=== PATIENT | male | born 1980 | race Two or more races ===

== ENCOUNTER 2016-12-28 21:16 | Emergency (ER) | payer MEDICAID ==
[~2016-12-28] VITALS: Ht 180.3 cm; Wt 172.4 kg
[2016-12-29 02:42] VITALS: BP 128/95
== END 2016-12-29 02:43 | disposition home or self-care (01) ==
LOC: ER 21:17
DX: K43.9 Ventral hernia without obstruction or gangrene (principal); Z88.1 Allergy status to other antibiotic agents; Z88.2 Allergy status to sulfonamides; Z88.8 Allergy status to other drugs, medicaments and biological substances; V43.52XA Car driver injured in collision with other type car in traffic accident, initial encounter; Y93.89 Activity, other specified; Y92.89 Other specified places as the place of occurrence of the external cause; Y99.9 Unspecified external cause status
CPT/HCPCS: 76870; 99284; A4606; Z7610

== ENCOUNTER 2018-12-10 13:31 | Emergency (ER) | payer MEDICAID ==
[~2018-12-10] VITALS: Ht 177.8 cm; Wt 204.6 kg
--- NOTE | 2018-12-10 13:50 | NUR ---
PT BIB SELF C/O OF DIZZINESS SINCE YESTERDAY, PT IS AAOX4, NOT IN RESPIRATORY DISTRESS, BP IS ELEVATED 174/103, KEPT RESTED AND COMFORTABLE.
--- NOTE | 2018-12-10 14:10 | NUR ---
SEEN AND EXAMINED BY JANE ODONNELL.
[2018-12-10] MEDS ORDERED: ALBUTEROL FS 2.5 MG/3 ML VIAL.NEB ONE ×2 (14:13→14:14)
--- NOTE | 2018-12-10 14:22 | NUR ---
RT AT BEDSIDE FOR BREATHING TREATMENT.
[2018-12-10] MEDS ORDERED: ALBUTEROL FS 2.5 MG/3 ML VIAL.NEB CONTNEB ONE (14:30)
[2018-12-10] MEDS ORDERED: ALBUTEROL FS 2.5 MG/3 ML VIAL.NEB NEB ONE (14:30)
[2018-12-10] MEDS ORDERED: CLONIDINE HCL 0.1 MG TABLET ONE (15:14)
--- NOTE | 2018-12-10 15:17 | NUR ---
NOTED HIGH BP 172/85 JANE ODONNELL NOFTIFIED.
--- NOTE | 2018-12-10 15:17 | NUR ---
IV removed. Catheter intact and site benign. Pressure and 4x4 applied to site. No bleeding noted. Patient discharged to home in stable condition. Written and verbal after care instructions given. Patient verbalizes understanding of instruction.
[2018-12-10] MEDS ORDERED: CLONIDINE HCL 0.1 MG TABLET PO ONE (15:30)
[2018-12-10 15:51] VITALS: BP 136/69
== END 2018-12-10 16:48 | disposition home or self-care (01) ==
LOC: ER 13:33
DX: R42 Dizziness and giddiness (principal); R03.0 Elevated blood-pressure reading, without diagnosis of hypertension; E66.01 Morbid (severe) obesity due to excess calories; R06.2 Wheezing; F17.210 Nicotine dependence, cigarettes, uncomplicated; Z86.79 Personal history of other diseases of the circulatory system; Z88.1 Allergy status to other antibiotic agents; Z88.2 Allergy status to sulfonamides
CPT/HCPCS: 94644; 99285; 99406; A4606

== ENCOUNTER 2019-06-18 23:07 | Inpatient (IN) | payer MEDICAID ==
[~2019-06-18] VITALS: Ht 177.8 cm; Wt 205.0 kg
[2019-06-18] MEDS ORDERED: LIDOCAINE 1%-EPI 1:100,000 20 ML VIAL TP ONE (23:30)
[2019-06-18] MEDS ORDERED: IV NS 0.9% 1,000 ML BAG IV ONE (23:30)
[2019-06-18] MEDS ORDERED: VANCOMYCIN 1 GM in IV D5W 250 ML IV ONE (23:30)
[2019-06-18] MEDS ORDERED: PIPERACILLIN /TAZOBACTAM 3.375 G in IV D5W 50 ML IV ONE (23:30)
[2019-06-18] MEDS ORDERED: LIDOCAINE 1%-EPI 1:100,000 20 ML VIAL ONE (23:31)
--- NOTE | 2019-06-18 23:45 | NUR ---
Thuan ODONNELL AT BEDSIDE FOR I&D.
[2019-06-18] MEDS ORDERED: VANCOMYCIN 1 GM VIAL ONE (23:47)
[2019-06-18] MEDS ORDERED: PIPERACILLIN /TAZOBACTAM 3.375 G VIAL IV ONE (23:48)
[2019-06-18 23:51] LABS: BASOPHILS % (AUTO) 0.6 % (0.0-2.0); EOSINOPHILS % (AUTO) 1.2 % (0.0-6.0); HEMATOCRIT 50 % (39-51); HEMOGLOBIN 16.9 g/dL (13.5-17.5); LYMPHOCYTES % (AUTO) 24.8 % (20.0-44.0); MEAN CORPUSCULAR HGB CONC 34 g/dl (31.0-36.0); MEAN CORPUSCULAR VOLUME 99 fL (80-96); MONOCYTES # (AUTO) 1.1 /CMM (0.1-1.30); NEUTROPHILS % (AUTO) 60.4 % (43.0-81.0); PLATELET COUNT (AUTO) 209 /CMM (150-450); RED BLOOD CELL COUNT(AUTO) 5.01 MIL/uL (4.5-6.0); WHITE BLOOD COUNT (AUTO) 8.3 K/uL (4.3-11.0)
[2019-06-19] LABS: CALCIUM, SERUM 8.6 mg/dL (8.5-10.1); POTASSIUM 3.9 mmol/L (3.5-5.1)
[2019-06-19] MEDS ORDERED: HYDROCODONE/APAP 5/325MG 1 EACH TABLET PO PRN
[2019-06-19] MEDS ORDERED: Z GUARD REMEDY 2 OZ OINT TP PRN
[2019-06-19] MEDS ORDERED: ZOLPIDEM TARTRATE 5 MG TABLET PO PRN
[2019-06-19] MEDS ORDERED: MAGNESIUM HYDROXIDE 30 ML UDC PO PRN
[2019-06-19] MEDS ORDERED: MORPHINE SULFATE INJ 2 MG/ML DISP.SYRIN IV PRN
[2019-06-19] MEDS ORDERED: ONDANSETRON HCL/PF 4 MG/2 ML VIAL IVP PRN
[2019-06-19] MEDS ORDERED: ACETAMINOPHEN 325 MG TABLET PO PRN
[2019-06-19] MEDS ORDERED: ENOXAPARIN SODIUM 40 MG/0.4 ML DISP.SYRIN SQ SCH
[2019-06-19] MEDS ORDERED: MAG HYDROX/AL HYDROX/SIMETH 30 ML UDC PO PRN
--- NOTE | 2019-06-19 | NUR ---
DR. TOLEDO AT BEDSIDE TO MISTI PT.
[2019-06-19 00:08] LABS: ALBUMIN 3.1 g/dL (3.4-5.0); BILIRUBIN,DIRECT 0.1 mg/dL (0.0-0.2); BILIRUBIN,TOTAL 0.5 mg/dL (0.2-1.0); TOTAL PROTEIN, SERUM 7.9 g/dL (6.4-8.2)
--- NOTE | 2019-06-19 00:21 | NUR ---
PT TRANSPORTED TO RADIOLOGY FOR CT.
[2019-06-19] MEDS ORDERED: IV NS 0.9% 250 ML IV ONE (00:27)
[2019-06-19] MEDS ORDERED: IOHEXOL-300 100 ML VIAL IV ONE (00:27)
[2019-06-19] MEDS ORDERED: CT SWABBABLE VALVE TRANS SET 1 EA INFUS.SET MC ONE (00:27)
[2019-06-19] MEDS ORDERED: TDAP [DIPH/PERTUSSIS/TET] 0.5 ML VIAL IM ONE ×2 (00:30→03:25)
--- NOTE | 2019-06-19 00:30 | NUR ---
PT MOTHER [phone]
--- NOTE | 2019-06-19 00:49 | NUR ---
PT BACK FROM RADIOLOGY. PENDING CT RESULT.
--- NOTE | 2019-06-19 00:54 | NUR ---
ONLINE MERCHANDISER AT BEDSIDE.
--- NOTE | 2019-06-19 01:38 | NUR ---
REPORT CALLED TO M/S JOHNATHON US.
[2019-06-19] MEDS ORDERED: VANCOMYCIN 2 GM in IV NS 0.9% 500 ML IV ONE (02:00)
[2019-06-19] MEDS: ENOXAPARIN SODIUM 40 MG/0.4 ML DISP.SYRIN SQ SCH ×3 (02:00→21:00)
--- NOTE | 2019-06-19 02:20 | NUR ---
RN NOTES RECEIVED PT. FROM ER WITH DX. OF CELLULITIS, S/P I & D DRESSING STILL INTACT, PT. CAME-UP VANCOMYCIN 1 GM WAS STILL INFUSING, PT. IS OBESE AND PT. IS ALREADY ASKING FOR FOOD AND WANT TO GO DOWN TO SMOKE AFTER, PT. IS NON-COMPLIANT DOESN'T WANT TO LISTEN TO OUR INSTRUCTIONS, PT. REFUSED SKIN ASSESSMENT, DENIES PAIN, NO SOB, CALL LIGHT WITHIN REACH, [id number], CONTINUE TO MONITOR
[2019-06-19 02:30] VITALS: BP 158/90
--- NOTE | 2019-06-19 02:45 | NUR ---
RN NOTES CALLED [facility] AND VERIFY THE ORDER BECAUSE WHEN PT. CAME UP VANCOMYCIN IV STILL REFUSING AND HE RECEIVED 1 GM FROM ER. [facility] WILL FIX THE ORDER
[2019-06-19] MEDS ORDERED: VANCOMYCIN 1 GM VIAL ONE (03:10)
--- NOTE | 2019-06-19 03:35 | NUR ---
RN NOTES PT. REFUSED LOVENOX 40 MG ... EXPLAINED THE BENEFITS OF THE MEDICATION BUT PT. STILL REFUSING
[2019-06-19] MEDS: VANCOMYCIN 1 GM in IV D5W 250ml IV SCH ×2 (03:36→04:00)
--- NOTE | 2019-06-19 06:45 | NUR ---
RN NOTES AWAKE, NON-COMPLIANT, STILL WANTS TO GO DOWN TO SMOKE, CHARGE NURSE TALKED TO THE PT. DENIES PAIN, NO SOB, PT. NEEDS ATTENDED
--- NOTE | 2019-06-19 07:00 | NUR ---
RN NOTES CHARGE NURSE TALKED TO THE PT. AND EXPLAINED ABOUT BIG BOY BED, PT. REFUSED
--- NOTE | 2019-06-19 07:30 | NUR ---
MS RN OPENING NOTE RECEIVED PATIENT IN BED. A/O X4. TOLERATING ROOM AIR. RESPIRATIONS EVEN AND UNLABORED. DENIES SOB. DENIES PAIN AT THIS TIME. IN NO APPARENT DISTRESS. IV ACCESS LEFT AC GAUGE 18 PATENT AND SALINE LOCKED. BED IS LOW AND LOCKED. CALL LIGHT WITHIN REACH. WILL CONTINUE TO MONITOR.
[2019-06-19 08:00] VITALS: BP 135/90
[2019-06-19] MEDS ORDERED: BACI28.42 TP (08:19)
[2019-06-19] MEDS ORDERED: IPRA12.9 PO (08:19)
[2019-06-19] MEDS ORDERED: ESOM20CA37 PO (08:19)
[2019-06-19] MEDS ORDERED: NEOM7.5C2 TP (08:19)
[2019-06-19] MEDS ORDERED: CLOT15CR63 TP (08:19)
--- NOTE | 2019-06-19 10:36 | NUR ---
WOUND CARE CONSULT: PT PRESENTS WITH LEFT POSTERIOR THIGH WOUND, S/P I&D OF ABSCESS. WOUND MEASURES 0.2CM X 3CM X 3CM WITH SEROSANGUINOUS DRAINAGE, NO ODOR. RECOMMENDATIONS MADE FOR WOUND CARE. DISCUSSED WITH NURSING STAFF. PT IS AMBULATORY AND CONTINENT. RECOMMEND FOLLOW UP WITH MD/SURGEON. WILL SEE PRN.
[2019-06-19 11:17] LABS: BASOPHILS % (AUTO) 0.4 % (0.0-2.0); HEMATOCRIT 50 % (39-51); HEMOGLOBIN 17.1 g/dL (13.5-17.5); LYMPHOCYTES # (AUTO) 1.3 /CMM (0.8-4.8); LYMPHOCYTES % (AUTO) 17.8 % (20.0-44.0); MEAN CORPUSCULAR HGB CONC 35 g/dl (31.0-36.0); MEAN CORPUSCULAR VOLUME 98 fL (80-96); MONOCYTES # (AUTO) 0.9 /CMM (0.1-1.30); MONOCYTES % (AUTO) 11.4 % (2.0-12.0); NEUTROPHILS # (AUTO) 5.2 /CMM (1.8-8.9); NEUTROPHILS % (AUTO) 69.4 % (43.0-81.0); PLATELET COUNT (AUTO) 222 /CMM (150-450); RED BLOOD CELL COUNT(AUTO) 5.04 MIL/uL (4.5-6.0); WHITE BLOOD COUNT (AUTO) 7.5 K/uL (4.3-11.0)
[2019-06-19 11:24] LABS: CALCIUM, SERUM 8.7 mg/dL (8.5-10.1); CREATININE 0.9 mg/dL (0.6-1.3); MAGNESIUM 1.7 mg/dL (1.8-2.4); PHOSPHORUS 3.7 mg/dL (2.5-4.9)
[2019-06-19 11:33] LABS: THYROID STIMULATING HORMONE 2.136 uIU/mL (0.358-3.74)
[2019-06-19] MEDS: PIPERACILLIN /TAZOBACTAM 3.375 G in IV D5W 50 ML IV SCH ×3 (11:57→23:37)
[2019-06-19] MEDS ORDERED: FEE PK DOSING 1 MIN EA MC ONE (12:04)
[2019-06-19] MEDS: VANCOMYCIN 1.5 GM in IV D5W 500 ML IV SCH (13:32)
[2019-06-19 16:00] VITALS: BP 137/76
--- NOTE | 2019-06-19 18:36 | NUR ---
MS JOHNATHON CLOSING NOTE PATIENT IS RESTING IN BED. A/O X4. TOLERATING ROOM AIR. RESPIRATIONS EVEN AND UNLABORED. DENIES SOB. DENIES PAIN AT THIS TIME. IN NO APPARENT DISTRESS. ALL NURSING NEEDS MET. BED IS LOW AND LOCKED. CALL LIGHT WITHIN REACH. WILL ENDORSE TO STORAGE RECEIPT POSTER FOR SERGEY. Addendum: 06/19/19 at 1926 by XENIA JUARES RN CONTINUATION OF NOTE COULD NOT COMPLETE GIVING 2 GRAMS OF MAGNESIUM THAT WAS ORDERED DUE TO PATIENT WANTING TO BE FREQUENTLY DISCONNECTED FROM THE IV TO GO DOWN OUTSIDE OF THE HOSPITAL FOR A SMOKE. ENDORSED 2 BAGS TOTALLING 2 GRAM OF MAGNESIUM TO NIGHT NURSE.
--- NOTE | 2019-06-19 19:33 | NUR ---
MS RN RECEIVE PT IN BED A/O X 3, STABLE, RESPIRATIONS EVEN AND UNLABORED, SAFETY MEASURES IN PLACE. WILL CONTINUE TO MONITOR. WILL INFUSE 2G 2 BAGS OF MAGNESIUM ENDORSE BY DAY SHIFT RN
[2019-06-19 20:00] VITALS: BP 154/72
[2019-06-19 20:05] VITALS: BP 154/72
[2019-06-19] MEDS: Magnesium 1GM/D5W 100ML PREMIX 100 ML IV SCH ×2 (20:57→22:01)
--- NOTE | 2019-06-19 21:30 | NUR ---
PT REFUSING LOVENOX 40 MG SQ DUE AT 2100 DESPITE EXPLAINING RISKS AND BENEFITS OFFERED 3 TIMES STILL REFUSED. PER PT HE DOESN'T NEED IT. PT NON COMPLIANT.
--- NOTE | 2019-06-19 21:51 | NUR ---
Patient lives locally with his family,. He is ambulatory and independent with adl's. Denies having DME or homehealth. His pcp is Dr. Palomo Issa. Family will provide ride when discharge. Might need wound care f/u when discharge. Nae grace sample case porter [phone]. Addendum: 06/19/19 at 2152 by NADINE RUANO RN Amended: Links added.
[2019-06-20] MEDS: VANCOMYCIN 1.5 GM in IV D5W 500 ML IV SCH (00:18)
--- NOTE | 2019-06-20 03:04 | NUR ---
MS RN PT C/O OF PAIN IN LAC 18 G. IV CHECKED PATENT AND INTACT LINE WITH GOOD BLOOD RETURN NO S/S OF INFILTRATION NOTED AND REDNESS. PT STILL INSISTING TO REMOVED HIS IV PERIPHERAL LINE DESPITE EXPLAINING RISKS AND BENEFITS, OFFERED ICE AND ELEVATE ARM. PT REFUSED PAIN MEDICATION. REMOVED I.V HEPLOCK PER PT REQUEST
[2019-06-20] MEDS: PIPERACILLIN /TAZOBACTAM 3.375 G in IV D5W 50 ML IV SCH (06:00)
--- NOTE | 2019-06-20 06:24 | NUR ---
MS RN PT SLEPT WELL THROUGHOUT THE NIGHT. NOT IN RESPIRATORY DISTRESS. PT NON COMPLIANT WITH MEDICATION, REFUSED ZOSYN IVPB DUE AT 0600 PT ALS REFUSED I.V INSERTION PT VERBALIZED "TOO MANY ANTIBIOTICS IM TIRED OF IT". KEPT CLEAN AND DRY AND COMFORTABLE. NEEDS ATTENDED AND ANTICIPATED. NURSING CARE RENDERED, REPOSITION EVERY 2 HOURS, BILATERAL WRIST RESTRAINT ON CHECK CIRCULATION SAFETY MEASURES AT ALL TIMES. ENDORSE TO THE NEXT SHIFT. Addendum: 06/20/19 at 0628 by KIM MEA RN MISTAKEN ENTRY PLEASE DISREGARD THIS DOCUMENTATION
--- NOTE | 2019-06-20 06:28 | NUR ---
MS RN ASLEEP AND EASILY AWAKEN. RESPIRATIONS EVEN AND UNLABORED. PT NON COMPLIANT WITH MEDICATION, REFUSED ZOSYN IVPB DUE AT 0600 AND REFUSED I.V INSERTION PT VERBALIZED "TOO MANY ANTIBIOTICS IM TIRED OF IT NO MORE I.V INSERTION". DESPITE EXPLAINING RISKS AND BENEFITS OFFERED 3 TIMES STILL REFUSED. MTaylor HOSPITALIST MADE AWARE. NEEDS ATTENDED AND ANTICIPATED. GOOD SKIN CARE PROVIDED. KEPT CLEAN, DRY AND COMFORTABLE. ENDORSE TO THE NEXT SHIFT CONTINUITY OF CARE.
--- NOTE | 2019-06-20 07:30 | NUR ---
MS RN OPENING NOTE RECEIVED PATIENT IN BED. A/OX3. TOLERATING ROOM AIR. RESPIRATIONS EVEN AND UNLABORED. DENIES PAIN AT THIS TIME. PATIENT HAS NO IV ACCESS. IN NO APPARENT DISTRESS AT THIS TIME. BED IS LOW AND LOCKED. CALL LIGHT WITHIN REACH. WILL CONTINUE TO MONITOR.
[2019-06-20 08:00] VITALS: BP 154/74
[2019-06-20] MEDS ORDERED: LACTOBACILLUS RHAMNOSUS GG 1 EACH CAP.SPRINK PO SCH (09:00)
[2019-06-20] MEDS ORDERED: CIPR-262 PO (10:44)
[2019-06-20] MEDS ORDERED: ACET-907 PO (10:47)
--- NOTE | 2019-06-20 13:30 | NUR ---
MS RN NOTE PATIENT IS BEING DISCHARGED IN STABLE CONDITION. FAMILY IS PROVIDING TRANSPORTATION. A/O X4. RESPIRATION ARE EVEN AND UNLABORED. DENIES SOB. DENIES PAIN AT THIS TIME. IN NO APPARENT DISTRESS. PRESCRIPTION, BELONGINGS, AND EXIT CARE GIVEN.
== END 2019-06-20 13:15 | disposition home health service (06) | DRG 383 ==
LOC: ER 23:11 → MED 06-19 01:19
PROVIDERS: ADMIT Student in an Organized Health Care Education/Training Program; ATTEND Internal Medicine
DX: L02.416 Cutaneous abscess of left lower limb (principal); E44.1 Mild protein-calorie malnutrition; L03.115 Cellulitis of right lower limb; L03.116 Cellulitis of left lower limb; E66.01 Morbid (severe) obesity due to excess calories; Z72.0 Tobacco use; Z68.44 Body mass index [BMI] 60.0-69.9, adult; Z88.1 Allergy status to other antibiotic agents; Z88.2 Allergy status to sulfonamides; I89.0 Lymphedema, not elsewhere classified
CPT/HCPCS: 36415; 73701-TC; 80048-TC; 80061-TC; 80076-TC; 83735-TC; 84100-TC; 84443-TC; 85025-TC; 87040-TC; 87070-TC; 87081-TC; 90715; 93970-TC; A6253; A6403; A6407; G0378; J1650; J2543; J3370; J3475; J3490; J7030; J7040; J7050; J7060; Q9967

== ENCOUNTER 2019-11-07 06:09 | Emergency (ER) | payer MEDICAID ==
[~2019-11-07] VITALS: Ht 177.8 cm; Wt 154.2 kg
[~2019-11-07 06:09] MED LIST: ACET-907 PO; CIPR-262 PO; CLOT15CR63 TP; ESOM20CA37 PO; IPRA12.9 PO; NEOM7.5C2 TP
[2019-11-07 06:26] VITALS: BP 156/126
--- NOTE | 2019-11-07 06:45 | NUR ---
DR. HUNG AT BEDSIDE FOR EVAL.
== END 2019-11-07 07:11 | disposition home or self-care (01) ==
LOC: ER 06:11
DX: L02.416 Cutaneous abscess of left lower limb (principal); E66.01 Morbid (severe) obesity due to excess calories; F17.200 Nicotine dependence, unspecified, uncomplicated; Z68.42 Body mass index [BMI] 45.0-49.9, adult; Z88.1 Allergy status to other antibiotic agents; Z88.2 Allergy status to sulfonamides; Z88.6 Allergy status to analgesic agent; Z79.899 Other long term (current) drug therapy

== ENCOUNTER 2020-04-16 19:49 | Inpatient (IN) | payer MEDICAID ==
[~2020-04-16] VITALS: Ht 180.3 cm; Wt 208.7 kg
[~2020-04-16 19:49] MED LIST changes: +CLOT15CR27 TP; -CLOT15CR63 TP
--- NOTE | 2020-04-16 19:50 | NUR ---
PT CAME TO THE ED C/O LEFT LOWER EXTREMITY PAIN AND SWELLING. +REDNESS. L BUTT CHEEK WOUND NOTED. +REDNESS +SWELLING. RIGHT LOWER EXTREMITY SWELLING NOTED WELL. PT CONNECTED TO THE HOOP DRIVING MACHINE OPERATOR HELPER AND POX
--- NOTE | 2020-04-16 20:42 | NUR ---
PATIENT REFUSED COVID-19 SWAB SAMPLE. CARI FORESTRY FIRE AIDE NOIFIED.
--- NOTE | 2020-04-16 20:49 | NUR ---
BLOOD COLLECTED AND SENT TO LAB
[2020-04-16 21:31] LABS: BASOPHILS % (AUTO) 0.5 % (0.0-2.0); EOSINOPHILS % (AUTO) 1.1 % (0.0-6.0); HEMATOCRIT 50 % (39-51); HEMOGLOBIN 16.9 g/dL (13.5-17.5); LYMPHOCYTES # (AUTO) 1.7 /CMM (0.8-4.8); LYMPHOCYTES % (AUTO) 20.2 % (20.0-44.0); MEAN CORPUSCULAR HGB CONC 34 g/dl (31.0-36.0); MEAN CORPUSCULAR VOLUME 101 fL (80-96); MONOCYTES % (AUTO) 11.6 % (2.0-12.0); NEUTROPHILS # (AUTO) 5.6 /CMM (1.8-8.9); NEUTROPHILS % (AUTO) 66.6 % (43.0-81.0); PLATELET COUNT (AUTO) 204 /CMM (150-450); RED BLOOD CELL COUNT(AUTO) 4.94 MIL/uL (4.5-6.0); WHITE BLOOD COUNT (AUTO) 8.5 K/uL (4.3-11.0)
--- NOTE | 2020-04-16 21:47 | NUR ---
URINE COLLECTED AND SENT TO LAB
[2020-04-16 22:03] LABS: APPEARANCE,URINE Slightly Cloudy (CLEAR); BILIRUBIN,URINE SMALL (NEGATIVE); BLOOD, URINE Negative Ery/uL (NEGATIVE); COLOR,URINE Dark (YELLOW); KETONES,URINE Negative (NEGATIVE); LEUKOCYTE ESTERASE ,URINE Negative (NEGATIVE); NITRITE, URINE Negative (NEGATIVE); PH,URINE 6.5 (5.0-8.0); PROTEIN,URINE 100 mg/dl (NEGATIVE); UGLUCOSE Negative (NEGATIVE)
--- NOTE | 2020-04-16 22:27 | NUR ---
CAUL DRESSER AT BEDSIDE FOR BLOOD REDRAW
[2020-04-16 22:33] LABS: BACTERIA,URINE Few /HPF (None Seen); RBC,URINE 0-2 /HPF (0-2); SQUAMOUS EPITHELIAL CELL,UR Moderate /HPF (None Seen)
[2020-04-16] MEDS ORDERED: VANCOMYCIN 1 GM VIAL ONE (22:50)
--- NOTE | 2020-04-16 22:52 | NUR ---
PT REFUSED CT. REAMER HAND MADE AWRE
[2020-04-16 22:58] LABS: CALCIUM, SERUM 8.8 mg/dL (8.5-10.1); POTASSIUM 4.2 mmol/L (3.5-5.1)
[2020-04-16] MEDS ORDERED: PIPERACILLIN /TAZOBACTAM 3.375 G in IV D5W 50 ML IV ONE (23:00)
[2020-04-16] MEDS ORDERED: VANCOMYCIN 1 GM in IV D5W 250 ML IV ONE (23:00)
[2020-04-16 23:06] LABS: D-DIMER 0.75 mg/L(FEU (0.17-0.50)
[2020-04-16 23:11] LABS: ALBUMIN 2.9 g/dL (3.4-5.0); BILIRUBIN,TOTAL 0.6 mg/dL (0.2-1.0); TOTAL PROTEIN, SERUM 7.9 g/dL (6.4-8.2)
[2020-04-16 23:33] LABS: C-REACTIVE PROTEIN 17.9 mg/dL (0.0-0.9)
--- NOTE | 2020-04-17 00:49 | NUR ---
DR. VILLA ON THE PHONE WITH DR. CESAR
--- NOTE | 2020-04-17 01:00 | NUR ---
NURSE WILL CALL BACK
--- NOTE | 2020-04-17 01:16 | NUR ---
RECEIVED REPORT FROM KINGSTON KING RN FOR SERGEY.
--- NOTE | 2020-04-17 01:30 | NUR ---
RN OPENING/ADMITTING NOTES RECEIVE REPORT FROM JOHNATHON KING. PER REPORT ADMITTING PHYSICIAN DR. CESAR DIAGNOSIS IS CELLULITIS. PATIENT ALERT AND ORIENTED X4, ABLE TO MAKE NEEDS KNOWN. ON OXYGEN 3L VIA NASAL CANNULA, SATURATING 93% AT THE MOMENT. COUGHING NOTED. IV SITE LEFT AC 20G, FLUSHING AND PATENT, SITE C/D/I, SALINE LOCKED. SKIN ASSESSMENT DONE, WOUND PICTURES TAKEN AND PLACED IN CHART. KEPT PATIENT CLEAN, DRY, AND COMFORTABLE. SAFETY MEASURES IN PLACE; CALL LIGHT WITHIN REACH, SIDE RAILS UP X2, HOB ELEVATED, BED LOCKED AND IN LOWEST POSITION, BED ALARM ON. WILL CONT TO MONITOR CLOSELY. WILL ATTEND TO DR. CESAR'S ADMITTING ORDERS. PATIENT REFUSING DOMINGUEZ VIRUS SWAB AND TEMPERATURE CHECK DESPITE DISCUSSION OF RISKS AND BENEFITS. STATED "I DON'T HAVE DOMINGUEZ VIRUS, AND IF YOU CHECK MY TEMPERATURE RIGHT NOW IT'S GOING TO BE HIGH BECAUSE I HAVE NOT EATEN OR DRANK WATER YET" WILL CONT TO MONITOR PT CLOSELY.
--- NOTE | 2020-04-17 01:39 | NUR ---
PT TRANSFERRED TO ROOM IN STABLE CONDITION
[2020-04-17] MEDS ORDERED: ZOLPIDEM TARTRATE 5 MG TABLET PO PRN (02:00)
[2020-04-17] MEDS ORDERED: HYDROCODONE/APAP 5/325MG 1 EACH TABLET PO PRN (02:00)
--- NOTE | 2020-04-17 02:50 | NUR ---
RN NOTES SPOKE WITH BERT FROM PHARMACY STATED PATIENT WILL NEED ADDITIONAL DOSE OF VANCOMYCIN DUE TO PATIENT 460LBS. WILL ATTEND TO ORDERS.
[2020-04-17] MEDS ORDERED: VANCOMYCIN 2 GM in IV D5W 500 ML IV ONE (03:00)
[2020-04-17] MEDS ORDERED: VANCOMYCIN 1 GM VIAL ONE (03:10)
--- NOTE | 2020-04-17 03:23 | NUR ---
RN NOTES SPOKE WITH YUSUF FROM [facility] REGARDING PATIENT ALLERGIES AND IF OKAY TO ORDER ZOSYN PER DR. GARCIA, STATED OKAY TO GIVE SINCE PATIENT HAD NO REACTION FROM ZOSYN GIVEN IN ER.
--- NOTE | 2020-04-17 03:36 | NUR ---
RN NOTES SPOKE WITH DR. CESAR AND ASKED IF OKAY TO GIVE ZOSYN BECAUSE PATIENT ALLERGIC TO CEPHALEXIN, STATED CHANGE ORDER TO MERREM 1GM IV Q8H. ALSO ASKED IF OKAY FOR PATIENT TO SMOKE SINCE WILL ATTEND TO ORDERS.
--- NOTE | 2020-04-17 04:07 | NUR ---
RN NOTES PATIENT REQUESTING TO SMOKE STILL DESPITE DISCUSSION OF RISKS AND BENEFITS, REFUSING IV MEDICATIONS WELL. PATIENT WENT OUT OF HIS ROOM AND STATED "I JUST WANT TO SMOKE I'M NOT CRAZY" DR. CESAR MADE AWARE AND STATED LET PATIENT SMOKE. ALSO MADE AWARE PATIENT NONCOMPLIANT.
--- NOTE | 2020-04-17 04:09 | NUR ---
RN NOTES PATIENT REFUSING VITAL SIGNS TO BE CHECKED DESPITE DISCUSSION OF RISKS AND BENEFITS.
--- NOTE | 2020-04-17 05:37 | NUR ---
RN NOTES PER BUTTONHOLE MAKER, PATIENT REFUSED AM LABS.
[2020-04-17] MEDS ORDERED: FEE PK DOSING 1 MIN EA MC ONE (06:12)
[2020-04-17 06:30] VITALS: BP 146/100
--- NOTE | 2020-04-17 07:00 | NUR ---
RN NOTES PATIENT A/OX4, ABLE TO MAKE NEEDS KNOWN. PATIENT NONCOMPLIANT. PATIENT AMBULATORY. WOUND CONSULT PENDING. REQUESTING TO BE TRANSFERRED TO NON-COVID UNIT, CN AND AIRPORT MANAGER AWARE. PATIENT STILL REFUSING DOMINGUEZ VIRUS SWAB X2 DESPITE DISCUSSION OF RISKS AND BENEFITS. AWAITING VANCO FOR PHARMACY TO BRING IN UNIT, SPOKE WITH DAVID FROM PHARMACY STATED THEY WILL BRING VANCO. ALL MD ADMITTING ORDERS ATTENDED. ENDORSED TO AM RN FOR SERGEY.
[2020-04-17] MEDS: VANCOMYCIN 1.5 GM in IV D5W 500 ML IV SCH ×2 (07:25→18:03)
--- NOTE | 2020-04-17 07:45 | NUR ---
ICU/RN: INITIAL NOTES,AM RECEIVED REPORT FROM NIGHT NURSE. PT ALERT, AWAKE, FOLLOWS COMMAND, YET NON COMPLIANT. PT ON ROOM AIR, NO ACUTE DISTRESS NOTED. PT REFUSING COVID TESTING, EXPLAINED THE IMPORTANCE OF THE TEST, PT CONTINUES TO REFUSE. LEFT LEG CELLULITIS AND SWELLING NOTED. LEFT INNER THIGH ABSCESS NOTED, WARM TO TOUCH AND PAINFUL. WAITING FOR PRIMARY MD AND SURGERY TO SEE PT. ALL NEEDS WILL BE ATTENDED TO, SAFETY MEASURES TAKEN, BED IN LOW POSITION, SIDE RAILS UP, CALL LIGHT WITHIN REACH. WILL CONTINUE CARE. PT ASKING TO GO SMOKE, INFORMED HIM OF HOSPITAL POLICY, WILL REINFORCE
[2020-04-17 08:00] VITALS: BP 147/87
[2020-04-17] MEDS ORDERED: MEROPENEM 1 G in IV NS 0.9% 100 ML IV ONE (08:00)
[2020-04-17] MEDS ORDERED: ENOXAPARIN SODIUM 40 MG/0.4 ML DISP.SYRIN SQ SCH (09:30)
--- NOTE | 2020-04-17 10:00 | NUR ---
ICU/RN: AT BEDSIDE. CONSENT FOR ASPIRATION OF ABSCESS IN CHART. Fluid collection, left posterior thigh. Ideally, this should be incised and drained operatively. However, the patient refuses this and he refuses COVID. He will only allow aspiration. Therefore, the left posterior inner thigh was prepped and draped. A 60 mL syringe was inserted into the fluid collection and 120 mL of hemorrhagic fluid were aspirated with complete resolution of the fluid collection. The fluid was sent for cultures and sensitivities. The procedure was tolerated without incidence. WILL CONTINUE TO MONITOR PT. VSS, NO ACUTE S/S OF BLEEDING NOTED, WARM COMPRESSES APPLIED PER MD ORDERS
[2020-04-17] MEDS ORDERED: MEROPENEM 1 G in IV NS 0.9% 100 ML IV SCH (14:00)
[2020-04-17] MEDS: MEROPENEM 1 G in IV NS 0.9% 100 ML IV SCH ×2 (14:30→16:00)
[2020-04-17 16:00] VITALS: BP 165/94
--- NOTE | 2020-04-17 18:18 | NUR ---
ICU/RN: PT PIV INFILTRATED, REMOVED. PT REFUSES NEW PIV. REFUSING MERREM AND VANCO IV. CALLED. MEDS D/C'D, PO ROZINA ORDERED. WILL FOLLOW THROUGH.
[2020-04-17] MEDS: ACETAMINOPHEN 325 MG TABLET PO PRN (18:38)
[2020-04-17 18:40] LABS: BASOPHILS % (AUTO) 0.5 % (0.0-2.0); HEMATOCRIT 49 % (39-51); HEMOGLOBIN 16.4 g/dL (13.5-17.5); LYMPHOCYTES # (AUTO) 1.5 /CMM (0.8-4.8); LYMPHOCYTES % (AUTO) 16.1 % (20.0-44.0); MEAN CORPUSCULAR HGB CONC 33 g/dl (31.0-36.0); MEAN CORPUSCULAR VOLUME 100 fL (80-96); MONOCYTES # (AUTO) 1.2 /CMM (0.1-1.30); MONOCYTES % (AUTO) 12.5 % (2.0-12.0); NEUTROPHILS # (AUTO) 6.6 /CMM (1.8-8.9); NEUTROPHILS % (AUTO) 69.9 % (43.0-81.0); PLATELET COUNT (AUTO) 234 /CMM (150-450); WHITE BLOOD COUNT (AUTO) 9.5 K/uL (4.3-11.0)
[2020-04-17 18:49] LABS: CALCIUM, SERUM 8.6 mg/dL (8.5-10.1); CREATININE 0.9 mg/dL (0.6-1.3); POTASSIUM 3.9 mmol/L (3.5-5.1)
[2020-04-17 20:00] VITALS: BP 152/83
[2020-04-17] MEDS: ENOXAPARIN SODIUM 40 MG/0.4 ML DISP.SYRIN SQ SCH ×2 (21:00→21:08)
[2020-04-17] MEDS: CIPROFLOXACIN HCL 500 MG TABLET PO SCH (21:07)
--- NOTE | 2020-04-17 21:30 | NUR ---
MS/RN PATIENT REFUSING LOVENOX SCHEDULED AT 2100. DISCUSSED TO PATIENT THE IMPORTANCE AND BENEFITS TO MEDICATIONS AND STILL REFUSED. WITNESS JEREMÍAS RN AT BEDSIDE. WILL CONTINUE TO MONITOR PATIENT.
[2020-04-18 04:00] VITALS: BP 137/89
[2020-04-18] MEDS: ACETAMINOPHEN 325 MG TABLET PO PRN (04:14)
--- NOTE | 2020-04-18 06:40 | NUR ---
MS/RN PATIENT IS A/O X4 ABLE TO STATE NEEDS. Patient in bed with no sign of any distress. PATIENT CONTINUED ON ROOM AIR WITH NO COMPLAINT OF SOB SATURATING AT 93%. ALL NEEDS MED. CALL LIGHT WITHIN REACH AND PERSONAL ITEMS WITHIN REACH. WILL ENDORSE TO MORNING SHIFT NURSE.
--- NOTE | 2020-04-18 08:00 | NUR ---
POWER REACTOR OPERATOR NOTE RECEIVED PT IN THE BED LAYING DOWN COMFORTABLY.PATIENT IS A/O X4 . PT HAS no sign of any distress. PATIENT SATING 98% ON ROOM AIR AND HAS UNLABORED BREATHING. SAFETY MEASURES IN PLACE CALL LIGHT WITHIN REACH.BED AT THE LOWEST POSITION, LOCKED, BED ALARM ON. WILL CONTINUE TO MONITOR.
[2020-04-18] MEDS: CIPROFLOXACIN HCL 500 MG TABLET PO SCH (09:16)
[2020-04-18] MEDS ORDERED: CIPR-262 PO (09:28)
[2020-04-18] MEDS ORDERED: ACET-907 PO (09:28)
[2020-04-18 12:00] VITALS: BP 132/79
--- NOTE | 2020-04-18 13:00 | NUR ---
RN NOTE PT DISCHARGED HOME IN STABLE CONDITION. DISCHARGE PAPER SIGNED. PT ACCOMPANIED SAFELY TO THE [facility] HAND AREA. PT PICKED UP BY MOTHER.
== END 2020-04-18 12:55 | disposition home health service (06) | DRG 383 ==
LOC: ER 19:49 → TELE1 04-17 00:55 → MEDSG1 04-17 01:50
PROVIDERS: ADMIT Internal Medicine; ATTEND Internal Medicine
PROC: 0J9M3ZZ Drainage of Left Upper Leg Subcutaneous Tissue and Fascia, Percutaneous Approach (ICD-10-PCS; principal; 2020-04-17)
DX: L03.116 Cellulitis of left lower limb (principal); E66.01 Morbid (severe) obesity due to excess calories; I10 Essential (primary) hypertension; L02.416 Cutaneous abscess of left lower limb; F17.210 Nicotine dependence, cigarettes, uncomplicated; I89.0 Lymphedema, not elsewhere classified; Z68.44 Body mass index [BMI] 60.0-69.9, adult; Z71.6 Tobacco abuse counseling
CPT/HCPCS: 36415; 71045-TC; 80048-TC; 80053-TC; 81000-TC; 82550-TC; 82728-TC; 83605-TC; 83615-TC; 83880; 84484-TC; 85025-TC; 85378-TC; 85730-TC; 86140-TC; 87040-TC; 87070-TC; 87081-TC; G0378; J1650; J2185; J2543; J3370; J7030; J7050; J7060